=== PATIENT | female | born 1935 | race Caucasian/White ===

== ENCOUNTER 2019-04-20 12:21 | Inpatient (IN) | payer OTHER ==
[~2019-04-20] VITALS: Ht 170.2 cm; Wt 78.5 kg
[2019-04-20 12:31] VITALS: BP 122/34
[2019-04-20 12:50] LABS: URINE BLOOD NEGATIVE (Negative); URINE COLOR YELLOW; URINE GLUCOSE-RANDOM* NEGATIVE (Negative); URINE KETONES NEGATIVE (Negative); URINE LEUKOCYTES-REFLEX NEGATIVE (Negative); URINE NITRITE-REFLEX NEGATIVE (Negative); URINE PROTEIN (DIPSTICK) NEGATIVE (Negative); URINE SPECIFIC GRAVITY 1.025 (1.005-1.035); URINE UROBILINOGEN 0.2 E.U./dl (0.2-1.0)
[2019-04-20 12:52] LABS: ICTOTEST (BILI CONFIRMATORY) Negative (Negative); URINE BILIRUBIN NEGATIVE (Negative)
[2019-04-20 12:53] LABS: URINE CLARITY SL HAZY
[2019-04-20 12:59] LABS: AMP/METHAMP Negative (Negative); BARBITURATES Negative (Negative); BENZODIAZEPINES Negative (Negative); COCAINE Negative (Negative); METHADONE Negative (Negative); OPIATES Negative (Negative); PCP Negative (Negative)
[2019-04-20 13:09] LABS: ABSOLUTE NEUTROPHILS 16.7 thou/uL (1.4-8.2); BASOPHILS 0.1 % (0.0-2.0); HEMOGLOBIN 10.2 gm/dL (12.0-15.0); MCH 33.2 pg (26.0-34.0); MCHC 31.8 g/dL (28.0-37.0); MCV 104.3 fL (80.0-100.0); MONOCYTES 3.2 % (1.0-8.0); PLATELET COUNT 272 thou/uL (150-400); POLYS 92.7 % (36.0-66.0); RBC 3.07 mil/uL (4.20-5.00); RDW 13.7 % (10.5-14.5)
[2019-04-20 13:27] LABS: ALBUMIN 3.5 g/dL (3.4-5.0); CALCIUM 9.4 mg/dL (8.5-10.1); CREATININE 3.8 mg/dL (0.6-1.0); MAGNESIUM 2.2 mg/dL (1.8-2.4); TOTAL BILIRUBIN 1.1 mg/dL (<0.1-1.0); TOTAL PROTEIN 7.3 g/dL (6.4-8.2); TROPONIN-I 0.06 ng/mL (<0.06)
[2019-04-20 13:29] LABS: POTASSIUM 6.4 mmol/L (3.5-5.1)
[2019-04-20 14:50] VITALS: BP 122/34
[2019-04-20 16:41] VITALS: BP 96/48
[2019-04-20] MEDS ORDERED: TYLENOL325 MG PO (16:56)
[2019-04-20] MEDS ORDERED: ARICEPT10 M1 PO ×2 (16:57→17:13)
[2019-04-20] MEDS ORDERED: CLARITIN10 MG PO (16:59)
[2019-04-20] MEDS ORDERED: BENGAY GREASELE57 GM TOP (16:59)
[2019-04-20] MEDS ORDERED: LIDOCAINE1 EACH TOP (17:02)
[2019-04-20] MEDS ORDERED: LISINOPRIL2.5 MG PO (17:03)
[2019-04-20] MEDS ORDERED: POTASSIUM20 PO (17:04)
[2019-04-20] MEDS ORDERED: SINGULAIR 10 MG10 MG PO (17:05)
[2019-04-20] MEDS ORDERED: COMPAZINE25 MG RECTAL (17:05)
[2019-04-20] MEDS ORDERED: ULTRAM50 MG PO (17:06)
[2019-04-20] MEDS ORDERED: ZANTAC 150MG T150 M1 PO (17:07)
[2019-04-20] MEDS ORDERED: ZOLOFT50 M1 PO (17:07)
--- NOTE | 2019-04-20 18:01 | NUR ---
Patient arrived to ER approx. 1650 this evening via stretcher. Fluids infusing per orders and patient attached to tele monitor. Urinary kramer cath placed per orders. Pt unable to sign consents due to dementia; pt oriented to self only. History obtained from medical record sent from facility (copy placed in physical chart). Will continue to monitor.
[2019-04-20 19:40] VITALS: BP 107/56
[2019-04-21] VITALS: BP 110/61
[2019-04-21 04:05] VITALS: BP 120/62
[2019-04-21 04:50] VITALS: BP 120/71
[2019-04-21 06:02] LABS: HEMATOCRIT 30.8 % (37.0-47.0); HEMOGLOBIN 9.5 gm/dL (12.0-15.0); MCH 33.2 pg (26.0-34.0); MCHC 30.9 g/dL (28.0-37.0); MCV 107.5 fL (80.0-100.0); RBC 2.87 mil/uL (4.20-5.00); RDW 14.1 % (10.5-14.5); WBC 15.2 thou/uL (4.0-11.0)
--- NOTE | 2019-04-21 06:03 | NUR ---
Pt. is only oriented to person , very TAZLINA. Pleasantly confused. She has been repositioned for comfort. IV fluids infusing. Al in place. Protective barrier to buttocks.
[2019-04-21 06:08] LABS: CALCIUM 8.9 mg/dL (8.5-10.1)
[2019-04-21 06:13] LABS: CREATININE 2.4 mg/dL (0.6-1.0)
[2019-04-21 07:30] VITALS: BP 119/61
--- NOTE | 2019-04-21 10:50 | EKG ---
[place] [address] [facility] [place] [address] ELECTROCARDIOGRAM REPORT Name: CHANDAN CARVAJAL Room #: 351-P ADM IN M.R.#: [id number] Admission: 04/20/19 Attend Phys: Mesfin Motta MD Discharge: Date of : 39 Report #: [id number] THIS REPORT FOR: //name// [facility] ED Test Date: 2019-04-20 Test Time: 12:30:01 Pat Name: CHANDAN CARVAJAL Department: Room: [facility] Gender: F Hat Brusher Machine: JIL : 1935 Requested By: Kevin Kruger Order Number: [id number] MD: Nii Hillman Measurements Intervals Rudyard Rate: 176 P: CO: QRS: 0 QRSD: 136 T: 24 QT: 375 QTc: 642 Interpretive Statements Sinus rhythm Nonspecific T-wave abnormalities Artifact in lead(s) I,aVR,aVL,V1,V2,V3,V4,V5,V6 No previous ECG available for comparison Electronically Signed On 04-21-2019 10:49:34 CALL OUT OPERATOR by Nii Hillman [email or web address] <ELECTRONICALLY SIGNED> By: Nii Hillman MD 04/21/19 1049 1230 1230 Nii Hillman MD /RIC
[2019-04-21 15:34] VITALS: BP 143/50
--- NOTE | 2019-04-21 15:58 | NUR ---
ASSUMED CARE OF PT AT 0700. PT AOX1, PLEASANTLY CONFUSED, IN NO ACUTE DISTRESS. VERY HARD OF HEARING. DIFFICULT TO CONVERSE WITH. VITALS STABLE. IVF INCREASED PER RENAL. SMALL APPETITE. LABS SHOWING SLOW IMPROVEMENT. WILL CONT TO MONITOR.
[2019-04-21 19:30] VITALS: BP 137/52
--- NOTE | 2019-04-22 04:16 | NUR ---
RESTING QUIETLY. CONTINUES ON IV FLUIDS. CAREPLAN REVIEWED. DENIES PAIN.
[2019-04-22 05:13] LABS: ABSOLUTE NEUTROPHILS 9.3 thou/uL (1.4-8.2); BASOPHILS 0.2 % (0.0-2.0); EOSINOPHILS 0.2 % (0.0-3.0); HEMATOCRIT 25.9 % (37.0-47.0); HEMOGLOBIN 8.4 gm/dL (12.0-15.0); LYMPHOCYTES 10.3 % (24.0-44.0); MCH 34.4 pg (26.0-34.0); MCHC 32.5 g/dL (28.0-37.0); MCV 105.9 fL (80.0-100.0); MONOCYTES 6.6 % (1.0-8.0); PLATELET COUNT 189 thou/uL (150-400); POLYS 82.7 % (36.0-66.0); RBC 2.45 mil/uL (4.20-5.00); RDW 13.5 % (10.5-14.5); WBC 11.2 thou/uL (4.0-11.0)
[2019-04-22 05:28] VITALS: BP 139/56
--- NOTE | 2019-04-22 05:46 | NUR ---
PT ENCOURAGED TO DRINK SOME WATER. WHEN ASKED TO DRINK JUST REPLYS THAT SHE WANTS TO JUST LAY HERE. CONTINUES ON IV FLUIDS. DENIES PAIN. L[employer]LE S[employer]ERS [employer]OR REACHED OUT TO KNOW HOW SHE IS DOING. ESTEFANI REVIEWED.
[2019-04-22 06:03] LABS: CALCIUM 8.5 mg/dL (8.5-10.1); POTASSIUM 4.1 mmol/L (3.5-5.1)
[2019-04-22 06:04] LABS: CREATININE 1.2 mg/dL (0.6-1.0)
[2019-04-22 07:36] VITALS: BP 145/53
--- NOTE | 2019-04-22 10:01 | H ---
[facility] [place] [address] HISTORY AND PHYSICAL Name: CHANDAN CARVAJAL Room #: 351-P ADM IN M.R.#: [id number] Admission: 04/20/19 Attend Phys: Mesfin Motta MD Discharge: Date of : 37 Report #: [id number] THIS REPORT FOR: //name// CC: Mesfin Leonard Xiomara DATE OF SERVICE: 04/20/2019 CHIEF COMPLAINT: Altered mental status. HISTORY OF PRESENT ILLNESS: The patient is an 83-year-old female from [facility], who was sent to the ER with altered mental status and weakness. The facility noted today she was lethargic and less responsive, upon baseline and she was directed to the ER. She cannot provide any details of the history and there is no other information available. PAST MEDICAL HISTORY: Osteoarthritis, dyslipidemia, depression, hypertension, GERD, and senile dementia. PAST SURGICAL HISTORY: Unknown. FAMILY HISTORY: Unknown. SOCIAL HISTORY: Unknown other than she has been living at the [facility] for the last year. ALLERGIES: CODEINE. MEDICATIONS: Tylenol, Aricept 10 mg, Claritin, glucosamine, Lidoderm patch, lisinopril 20 mg, potassium 20 mEq, Singulair, Ultram, Zantac, and Zoloft. REVIEW OF SYSTEMS: She is unable to give a review. PHYSICAL EXAMINATION: VITAL SIGNS: Temperature 36.4, pulse 69, respirations 17, blood pressure 122/34, and O2 sat 95% on the room air. GENERAL: She is awake and alert, pleasantly confused, and resting in the stretcher in the ER. HEAD AND NECK: Unremarkable. Mouth looks dry. LUNGS: Clear anteriorly. HEART: Regular. ABDOMEN: Soft, normoactive bowel sounds. No rebound or guarding or palpable masses. EXTREMITIES: No cyanosis or clubbing. There is 1+ edema in the lower legs. NEUROLOGIC: Cranial nerves are intact. She moves all extremities, although global weakness throughout, about 3/5 throughout. [facility] [address] [place] [address] HISTORY AND PHYSICAL Name: CHANDAN CARVAJAL Room #: 351-[facility] IN M.R.#: [id number] Admission: 04/20/19 Attend Phys: Mesfin Motta MD Discharge: Date of : 37 Report #: [id number] LABORATORY REVIEW: White count 18 and hemoglobin 10. Potassium is 6.4, CO2 of 16, BUN 103, and creatinine 3.8. Troponin is negative. UA is negative. Drug screen is negative. Chest x-ray is negative. CT head is negative. ASSESSMENT: 1. Acute renal failure. 2. Hyperkalemia due to the above. 3. Leukocytosis, unclear and no obvious source of infection. 4. Macrocytic anemia. 5. Hypertension. 6. Senile dementia. 7. Osteoarthritis. PLAN: She will be given supportive measures for now and I have treated her potassium in ER and I have ordered Kayexalate and slow IV fluids. Repeat lab data in the morning. A Al catheter to be placed to rule out a urinary retention along with a renal ultrasound. Empiric Rocephin for now, pending cultures given the leukocytosis. She has do not resuscitate orders and out of hospital DNR at the nursing center and that will be continued here. <ELECTRONICALLY SIGNED> By: Mesfin Motta MD 04/22/19 1001 1447 1515 Mesfin Motta MD /nt
--- NOTE | 2019-04-22 13:08 | NUR ---
PT IS VERY SLEEPY TODAY AND KEEPS ASKING TO BE LEFT ALONE TO SLEEP. PT DID NOT EAT BREAKFAST. PT SAT UP IN BED IN CHAIR POSITION FOR LUNCH. PT ONLY TOOK MINIMAL SIPS OF TEA. PT REFUSED TO EAT ANY LUNCH.
--- NOTE | 2019-04-22 15:58 | NUR ---
INITIAL ASSESSMENT: Received consult. LINA reviewed chart and spoke with nursing. Pt was admitted from [facility] due to dehydration. Pt on IV fluids and IV abx. Pt may be ready for discharge back to OP tomorrow pending labs. LINA met with pt at bedside. Pt unable to answer questions. Pt with hx of dementia. LINA spoke with pt's brother, Angel, via phone. Introduced role of LINA. Pt's brother lives in [place]. Pt's friend, Bob, lives locally and is avaialble if needed. Angel confirms plan for pt to return to [facility]. [facility] is following to assist as needed with discharge planning.
[2019-04-22 16:32] VITALS: BP 147/57
--- NOTE | 2019-04-22 19:34 | NUR ---
DIET CHANGED TO SOFT, PT ONLY HAS 1 TOOTH.
[2019-04-22 20:24] VITALS: BP 148/71
--- NOTE | 2019-04-22 22:46 | NUR ---
Much clearer mentation compared to admission as evidenced by ability to articulate needs. Some hesitation and expressive aphasia noted. Remains pleasantly confused. Sleeping intermitantly.
[2019-04-23 04:43] VITALS: BP 147/69
[2019-04-23 06:25] LABS: CALCIUM 8.6 mg/dL (8.5-10.1); POTASSIUM 3.8 mmol/L (3.5-5.1)
[2019-04-23 07:20] VITALS: BP 129/63
--- NOTE | 2019-04-23 07:45 | NUR ---
PT MAKING POOR PROGRESS TOWARDS GOALS. DIFFICULT TO OBTAIN PT COOPERATION GIVEN PT IS [place] AND REPORTED HX OF DEMENTIA. URINARY CATHETER REPORTEDLY DC PRIOR TO SHIFT CHANGE LAST NIGHT. BLADDER SCAN AT 0230, RESULT WAS 220ML. NO SIGN OF INCONTINENCE. BLADDER SCAN AT 0630 WAS 309. STILL NO SIGN OF INCONTINENCE. CALL TO DR. ANDRADE, ORDER TO STRAIGHT CATH PRN. STRAIGHT CATH DONE BY VERONICA RN, BUT WAS UNABLE TO PASS THE CATHETER. PER HER REPORT, A LARGER SIZE CATHETER MAY BE NEEDED A 16 FR WAS USED. U.S. TO ORDER 20 FR CATHETER AND DAY RN TO ATTEMPT STRAIGHT CATH.
[2019-04-23] MEDS ORDERED: FLOMAX0.4 MG PO (11:30)
--- NOTE | 2019-04-23 13:19 | NUR ---
DISCHARGE NOTE: LINA reviewed chart and spoke with nursing. Pt is medically stable for discharge back to [facility] today. Discharge orders/summary finalized. LINA faxed to [facility] and spoke with the DON, who confirms they are able to accept pt this afternoon. Request for transportaton to be after 1500 per facility. LINA arranged stretcher van transportation for [id number] via [employer]. Director of Case Mgmt approved transportation. LINA left voice message for pt's brother, Angel ([phone]) to notify of pt's discharge. Chart copy completed. Nursing provided with number to call report. No additional SW needs identified at this time, but is available to assist should needs arise.
[2019-04-23 15:31] VITALS: BP 140/64
--- NOTE | 2019-04-23 18:30 | NUR ---
PT is confused, but pt knows her name and she can follow some conmmands, pt starts eatng and drinking some, pt's LAB results have improved, RN has called DR to report pt urinary retention , pt's residual was 450ml from bladder scan at 1030am, new order , insert Al catheter at 1030am, 460ml yellow urinr coming out, RN has received order pt DC to [facility] , RN has giving report , transportation pick pack worker at 1815pm.
--- NOTE | 2019-05-03 07:30 | HC ---
[place] [address] CONSULTATION Name: CHANDAN CARVAJAL Room #: 351-P [facility] IN M.R.#: [id number] Admission: 04/20/19 Attend Phys: Mesfin Motta MD Discharge: 04/23/19 Date of : 37 Report #: [id number] THIS REPORT FOR: //name// CC: Mesfin Leonard Xiomara DATE OF SERVICE: 04/21/2019 NEPHROLOGY CONSULTATION REASON FOR CONSULTATION: Acute kidney injury. HISTORY OF PRESENT ILLNESS: This is an 83-year-old female who apparently lives at [facility]. She was sent in yesterday with altered mental status. She has some chronic dementia. She is unable to give me any history today. She was hypotensive on admission with some blood pressures recorded in the 90s/40s range. She was started on some IV fluids. Labs will be noted below. She had a Al catheter placed and is making a substantial amount of urine. She remains on some IV fluids. It does not look like she has eaten or had anything oral today. She was hyperkalemic on admission, but that is now corrected down to a potassium of 5.0. I have no old labs to indicate that she has any underlying chronic kidney disease. PAST MEDICAL HISTORY: Based upon her admitting history and physical showed that she has some hypertension, depression, hyperlipidemia, chronic dementia. MEDICATIONS: Appear to include Aricept 10 mg daily, lisinopril 20 mg daily, potassium 20 mEq daily, Singulair, Ultram, Zantac, Zoloft and some PRNs. ALLERGIES: Listed to CODEINE. ADDITIONAL FAMILY AND SOCIAL HISTORY: Unavailable. REVIEW OF SYSTEMS: Unavailable. PHYSICAL EXAMINATION: GENERAL: An 83-year-old female who awakens barely to voice, but more with some nudging. She opens her eyes, does not speak to me. VITAL SIGNS: Blood pressure 119/61, heart rate 78, temperature 99.7 degrees Fahrenheit, and oxygen saturation 100%. HEENT: Shows pupils are 3 mm and reactive. Sclerae nonicteric. Oral mucosa is parched. NECK: Veins are flat. CHEST: Clear bilaterally. HEART: Has a regular rate and rhythm. ABDOMEN: Nondistended, soft, nontender. Few bowel sounds are present. She has [address] [place] [address] CONSULTATION Name: CHANDAN CARVAJAL Room #: 351-P [facility] IN M.R.#: [id number] Admission: 04/20/19 Attend Phys: Mesfin Motta MD Discharge: 04/23/19 Date of : 39 Report #: [id number] no peripheral edema. LABORATORY DATA: From admission, sodium 139, potassium 6.4, chloride 107, bicarbonate 16, BUN 103, creatinine 3.8. Today, sodium 142, potassium 5.0, chloride 111, bicarbonate 15, BUN 88, creatinine 2.4, from admission calcium 8.9, magnesium 2.2. Normal liver function tests. White count 18.0 with 93 segs, 4 lymphs, 3 monos. Hemoglobin 10.2, hematocrit 32.0, platelets 272,000. Urinalysis, specific gravity 1.025, pH 5.0, negative dipstick. ASSESSMENT: 1. Acute kidney injury. She is dramatically volume deplete. She was hypotensive on presentation. She is chronically on some lisinopril but certainly contributed once she got hypotensive and volume deplete. She is making good amount of urine today. Creatinine level starting to come down. She remains on some IV fluids. I think we can increase her rate somewhat as she still is dramatically volume deplete on exam. I do not have prior listing of old creatinine levels. A renal ultrasound was fairly unremarkable. Urinalysis was similarly unremarkable, so I think this mostly was just volume. 2. Hyperkalemia, resolved. She has the same etiology with her acute kidney injury, chronic lisinopril therapy as well as potassium. 3. Chronic dementia. 4. Leukocytosis. She is on some ceftriaxone. No cultures were drawn, so I am uncertain if she has an actual infection. Her chest x-ray is clear. Uncertain what were actually treating here other than her leukocytosis, needs further clarification. PLAN: 1. I will increase her IV fluid rate to 125 mL per hour. 2. Follow up labs again in the morning. 3. We will follow along the care of this patient. 4. With her dementia and this presentation, I would keep her off the TRISTIN inhibitor long-term. <ELECTRONICALLY SIGNED> By: Brijesh Clay MD 05/03/19 0730 1354 2200 Brijesh Clay MD /nt
--- NOTE | 2019-05-03 13:12 | D ---
[facility] [place] [address] DISCHARGE SUMMARY Name: CHANDAN CARVAJAL Room #: 351-P [facility] IN M.R.#: [id number] Admission: 04/20/19 Attend Phys: Mesfin Motta MD Discharge: 04/23/19 Date of : 39 Report #: [id number] THIS REPORT FOR: //name// CC: Mesfin Leonard Xiomara FINAL DIAGNOSES: 1. Acute kidney injury. 2. Hyperkalemia. 3. Acute urinary retention. 4. Hypertension. 5. Senile dementia. HOSPITAL COURSE: The patient is admitted to the ER with acute kidney injury. Creatinine 3.5 and potassium above 6. This was treated medically with IV fluid support, placement of Al catheter and treatment of her potassium. Renal ultrasound was obtained, which was unremarkable and no signs of hydronephrosis. She was treated with IV fluids and her creatinine normalized. A voiding trial was attempted, but after removal of Al catheter she was unable to void and had residual urine and catheter was replaced. The plan for now will be to place her on Flomax with Al decompression for 2 weeks or so and then consider voiding trial at a later date. Because of her hyperkalemia, TRISTIN inhibitor was discontinued. PHYSICAL EXAMINATION: GENERAL: On the day of discharge, she was resting in bed, pleasantly confused, in no distress. VITAL SIGNS: Temperature 36.7, pulse 68, respirations 18, blood pressure 129/63 and O2 sat 99% on room air. LUNGS: Clear. HEART: Regular. ABDOMEN: Soft, normoactive bowel sounds. EXTREMITIES: No edema. Creatinine was 1.0 with BUN 26, chloride 111, CO2 of 19. DISPOSITION: She will return to [facility] for long-term care. I signed off on her transfer medication orders to include Flomax, Zoloft, Aricept, Tylenol. She has been to the care of Dr. Campo. Follow up lab data in 1 week. <ELECTRONICALLY SIGNED> By: Mesfin Motta MD 05/03/19 1312 1134 1140 Mesfin Motta MD /nt
== END 2019-04-23 18:28 | DRG 682 ==
LOC: ER 12:21 → EROBS 14:36 → 3W 14:36
PROVIDERS: Emergency Medicine; Internal Medicine; ADMIT Internal Medicine Geriatric Medicine
PROC: 0T9B70Z Drainage of Bladder with Drainage Device, Via Natural or Artificial Opening (ICD-10-PCS; principal; 2019-04-23)
DX: N17.9 Acute kidney failure, unspecified (principal); G92 Toxic encephalopathy; R33.9 Retention of urine, unspecified; R41.82 Altered mental status, unspecified; I10 Essential (primary) hypertension; F03.90 Unspecified dementia, unspecified severity, without behavioral disturbance, psychotic disturbance, mood disturbance, and anxiety; E87.5 Hyperkalemia; D72.829 Elevated white blood cell count, unspecified; D53.9 Nutritional anemia, unspecified; I95.9 Hypotension, unspecified; F32.9 Major depressive disorder, single episode, unspecified; E78.5 Hyperlipidemia, unspecified; E86.9 Volume depletion, unspecified; M19.90 Unspecified osteoarthritis, unspecified site; K21.9 Gastro-esophageal reflux disease without esophagitis; Z79.899 Other long term (current) drug therapy; Z88.5 Allergy status to narcotic agent
CPT/HCPCS: 10879